=== PATIENT | male | born 1960 | race Two or more races ===

== ENCOUNTER 2017-06-01 15:43 | Inpatient (IN) | payer MEDICAID ==
[~2017-06-01] VITALS: Ht 198.1 cm; Wt 61.2 kg
[2017-06-01] MEDS ORDERED: Ziprasidone 20mg cap ORAL ONE (16:00)
[2017-06-01 16:04] VITALS: BP 118/75
[2017-06-01 16:36] LABS: MEAN CORPUSCULAR HEMOGLOBIN 22.9 PG (27.0-31.0); MEAN CORPUSCULAR VOLUME 76 FL (80-99); MEAN PLATELET VOLUME 6.9 FL (6.5-10.1); PLATELET COUNT 191 K/UL (150-450); RED BLOOD COUNT 4.56 M/UL (4.70-6.10); RED CELL DISTRIBUTION WIDTH 15.5 % (11.6-14.8); WHITE BLOOD COUNT 4.8 K/UL (4.8-10.8)
[2017-06-01 16:45] LABS: APPEARANCE,URINE CLEAR; KETONES,URINE NEGATIVE (NEGATIVE); LEUKOCYTE ESTERASE ,URINE NEGATIVE (NEGATIVE); NITRITE,URINE NEGATIVE (NEGATIVE); PH,URINE 5 (4.5-8.0); PROTEIN,URINE 1+ (NEGATIVE); UROBILINOGEN,URINE 1 MG/DL (0.0-1.0)
[2017-06-01 16:52] LABS: PROTHROMBIN TIME 10.4 SEC (9.30-11.50)
[2017-06-01 16:55] LABS: TROPONIN I < 0.30 ng/mL (<=0.30)
[2017-06-01 16:59] LABS: ALBUMIN/GLOBULIN RATIO 0.7 (1.0-2.7); CALCIUM 9.2 mg/dL (8.6-10.2); CREATININE 1.4 mg/dL (0.7-1.2); GLOMERULAR FILTRATION RATE 52.2 mL/min (>60); POTASSIUM 4.2 mEQ/L (3.4-4.9); TOTAL PROTEIN 8.2 g/dL (6.6-8.7)
[2017-06-01] MEDS ORDERED: [UNRECOGNIZED DRUG - OTHER] (17:08)
[2017-06-01 17:09] LABS: CKMB 10.6 ng/mL (< 6.7)
[2017-06-01 17:20] LABS: BACTERIA,URINE FEW /HPF; WBC,URINE 0-2 /HPF (0 - 0)
[2017-06-01 17:46] VITALS: BP 122/79
[2017-06-01 18:30] VITALS: BP 112/76
--- NOTE | 2017-06-01 18:41 | Emergency Room Report ---
History of Present Illness General Chief Complaint: Chest Pain Source: Patient Present Illness HPI Patient has history of schizophrenia. Patient states that he's compliant with medications. He develop acute onset of chest discomfort associated with hearing voices. He states that he has been hearing voices for one day. He has had chest discomfort with chest pain for a couple hours. He denies any fever nausea vomiting diarrhea chills. No other complaints are noted. Symptoms noted to be moderate. No other modifying factors. No other associated signs and symptoms. No other complaints were noted. Allergies: Coded Allergies: HALOPERIDOL (Verified Allergy, Unknown, 06/01/17) Patient History Past Medical History: asthma, psych hx Past Surgical History: none Pertinent Family History: none Social History: Denies: alcohol use, drug use, smoking Reviewed Nursing Documentation: PMH: Agreed, PSxH: Agreed Nursing Documentation-PMH Hx Asthma: Yes History Of Psychiatric Problem: Yes Review of Systems All Other Systems: negative except mentioned in HPI Physical Exam Vital Signs Date Time Temp Pulse Resp B/P Pulse Ox O2 Delivery O2 Flow Rate FiO2 06/01/17 15:43 98.8 101 17 114/72 100 Room Air Sp02 EP Interpretation: reviewed, normal General Appearance: normal inspection, well appearing, no apparent distress, alert Head: atraumatic Eyes: bilateral eye normal inspection ENT: normal ENT inspection, hearing grossly normal, normal voice Neck: normal inspection, full range of motion, supple, no bony tend Respiratory: normal inspection, lungs clear, normal breath sounds, no respiratory distress, no retraction, no wheezing Cardiovascular #1: regular rate, rhythm, no edema Gastrointestinal: normal inspection, normal bowel sounds, non tender, soft, no guarding, no hernia Genitourinary: no CVA tenderness Musculoskeletal: normal inspection, back normal, normal range of motion Neurologic: normal inspection, alert, responsive, speech normal Psychiatric: normal inspection, judgement/insight normal, anxious Skin: normal inspection, normal color, no rash Medical Decision Making Diagnostic Impression: Primary Impression: ACS (acute coronary syndrome) Additional Impression: Chest pain ER Course Patient presented to the emergency department today complaining of chest pain. Differential diagnoses include acute coronary syndrome, pulmonary embolism, pneumothorax, chest wall pain, pleurisy, pericarditis, acute anxiety reaction just to name a few. Given the severity of the patient's presentation I felt this is a highly complex patient. This patient required extensive workup. CBC , chemistry, EKG, chest x-ray, cardiac enzymes, liver profile were all obtained. 12-lead EKG performed for nontraumatic chest pain. PQRS documentation: EKG was performed. Please refer to below for interpretation. Patient had CBC and chemistry obtained. Both of which were normal. Patient's cardiac enzymes also normal. Patient had normal chest x-ray. Patient's EKG and rhythm strip are also normal. However given patient's risk factors I felt the patient require admission to the hospital. Case was discussed with Dr. Leo. Patient will be admitted to telemetry for further treatment. Labs Test 06/01/17 16:17 White Blood Count 4.8 K/UL (4.8-10.8) Red Blood Count 4.56 M/UL (4.70-6.10) Hemoglobin 10.4 G/DL (14.2-18.0) Hematocrit 34.8 % (42.0-52.0) Mean Corpuscular Volume 76 FL (80-99) Mean Corpuscular Hemoglobin 22.9 PG (27.0-31.0) Mean Corpuscular Hemoglobin Concent 30.0 G/DL (32.0-36.0) Red Cell Distribution Width 15.5 % (11.6-14.8) Platelet Count 191 K/UL (150-450) Mean Platelet Volume 6.9 FL (6.5-10.1) Neutrophils (%) (Auto) % (45.0-75.0) Lymphocytes (%) (Auto) % (20.0-45.0) Monocytes (%) (Auto) % (1.0-10.0) Eosinophils (%) (Auto) % (0.0-3.0) Basophils (%) (Auto) % (0.0-2.0) Prothrombin Time 10.4 SEC (9.30-11.50) Prothromb Time International Ratio 1.0 (0.9-1.1) Activated Partial Thromboplast Time 20 SEC (23-33) Urine Color Yellow Urine Appearance Clear Urine pH 5 (4.5-8.0) Urine Specific [place] 1.025 (1.005-1.035) Urine Protein 1+ (NEGATIVE) Urine Glucose (UA) Negative (NEGATIVE) Urine Ketones Negative (NEGATIVE) Urine Occult Blood 1+ (NEGATIVE) Urine Nitrite Negative (NEGATIVE) Urine Bilirubin Negative (NEGATIVE) Urine Urobilinogen 1 MG/DL (0.0-1.0) Urine Leukocyte Esterase Negative (NEGATIVE) Urine RBC 2-4 /HPF (0 - 0) Urine WBC 0-2 /HPF (0 - 0) Urine Squamous Epithelial Cells None /LPF (NONE/OCC) Urine Bacteria Few /HPF (NONE) Sodium Level 139 mEQ/L (135-145) Potassium Level 4.2 mEQ/L (3.4-4.9) Chloride Level 101 mEQ/L (98-107) Carbon Dioxide Level 27 mEQ/L (20-30) Anion Gap 11 (5-15) Blood Urea Nitrogen 12 mg/dL (7-23) Creatinine 1.4 mg/dL (0.7-1.2) Estimat Glomerular Filtration Rate 52.2 mL/min (>60) Glucose Level 109 mg/dL (74-106) Calcium Level 9.2 mg/dL (8.6-10.2) Total Bilirubin 0.6 mg/dL (0.0-1.2) Aspartate Amino Transf (AST/SGOT) 37 U/L (5-40) Alanine Aminotransferase (ALT/SGPT) 24 U/L (3-41) Alkaline Phosphatase 91 U/L (40-129) Total Creatine Kinase 621 U/L (38-174) Creatine Kinase MB 10.6 ng/mL (< 6.7) Creatine Kinase MB Relative Index 1.7 Troponin I < 0.30 ng/mL (<=0.30) Pro-B-Type Natriuretic Peptide 25 pg/mL (0-125) Total Protein 8.2 g/dL (6.6-8.7) Albumin 3.5 g/dL (3.5-5.2) Globulin 4.7 g/dL Albumin/Globulin Ratio 0.7 (1.0-2.7) Lipase 21 U/L (< 60) EKG Diagnostic Results Rate: normal Rhythm: NSR ST Segments: no acute changes Rhythm Strip Diag. Results EP Interpretation: yes Rate: 80s Rhythm: NSR, no PVC's, no ectopy Chest X-Ray Diagnostic Results Chest X-Ray Diagnostic Results : Chest X-Ray Ordered: Yes # of Views/Limited/Complete: 1 View Indication: Chest Pain EP Interpretation: Yes Interpretation: no consolidation, no effusion, no pneumothorax Impression: No acute disease Interpreting ER Provider: Electronically signed by Jessica Blanc MD Last Vital Signs Date Time Temp Pulse Resp B/P Pulse Ox O2 Delivery O2 Flow Rate FiO2 06/01/17 18:30 97.7 76 20 112/76 93 Room Air Status: improved Disposition: ADMITTED INPATIENT Condition: Serious Referrals: NOT CHOSEN AMA/,REFERRING (PCP) JESSICA BLANC M.D. Jun 01, 2017 18:41
[2017-06-01 19:55] LABS: ANISOCYTOSIS 1+; BAND NEUTROPHILS % (MANUAL) 0 % (0-8); BASOPHILS % (MANUAL) 1 % (0-2); EOSINOPHILS % (MANUAL) 2 % (0-3); HYPOCHROMASIA 1+; LYMPHOCYTES % (MANUAL) 55 % (20-45); NEUTROPHILS % (MANUAL) 36 % (45-75); PLATELET ESTIMATE ADEQUATE; PLATELET MORPHOLOGY NORMAL; TOTAL CELLS COUNTED 100
[2017-06-01] MEDS ORDERED: ZYPREXA15 MG ORAL (20:03)
[2017-06-01 20:17] VITALS: BP 112/80
[2017-06-02 00:19] VITALS: BP 110/59
[2017-06-02 03:59] VITALS: BP 122/60
[2017-06-02 08:29] VITALS: BP 124/74
[2017-06-02] MEDS: Norco 5mg/325mg tab ORAL PRN ×2 (08:31→18:38)
[2017-06-02] MEDS ORDERED: Aspirin Baby 81mg ORAL SCH (09:00)
--- NOTE | 2017-06-02 10:06 | Diagnostic Imaging Report ---
Indication: COUGH Technique: One view of the chest Comparison: none Findings: Lungs and pleural spaces are clear. Heart size is normal Impression: No acute process
[2017-06-02 10:30] LABS: TROPONIN I < 0.30 ng/mL (<=0.30)
[2017-06-02 11:36] VITALS: BP 96/65
[2017-06-02 15:56] VITALS: BP 113/85
--- NOTE | 2017-06-02 16:08 | Cardiology Report ---
APPROVED REPORT EKG Measurement Heart [id number] Normal sinus rhythm Biatrial enlargement Abnormal ECG
--- NOTE | 2017-06-02 16:15 | Consultation ---
DATE OF CONSULTATION: HISTORY OF PRESENT ILLNESS: This is a 56-year-old male with a history of schizophrenia and he is being admitted to the hospital due to chest pain as well as auditory hallucination. The patient has been hearing voices, the voices commanding him, various things. He is not endorsing any manic or depressive symptoms. At this time, he is anxious. No suicidal or homicidal ideation. PAST PSYCHIATRIC HISTORY: Diagnosed with schizophrenia and has had several psychiatric hospitalization. No suicide attempts in the past. PAST MEDICAL HISTORY: Significant for asthma. ALLERGIES: Include Haldol. SUBSTANCE ABUSE HISTORY: No history of illicit drug use or alcohol. MENTAL STATUS EXAMINATION: Alert and oriented times to person, place, and situation. Mood is anxious. Affect is constricted. Congruent mood. Thought process is concrete. Thought content, there is no suicidal or homicidal ideation. Positive for auditory hallucinations. Insight and judgment is fair. ASSESSMENT: Schizophrenia. PLAN: 1. The patient will continue the Zyprexa 15 mg at bedtime. 2. We will follow up the patient and readjust medications. Yris Chirinos M.D. DR: CYNDY JOB#: [id number] CC:
[2017-06-02] MEDS ORDERED: Sorbitol Solution UD 30ml ORAL ONE (18:30)
[2017-06-02 20:00] VITALS: BP 108/62
--- NOTE | 2017-06-02 20:45 | History and Physical Report ---
DATE OF ADMISSION: 06/01/2017 HISTORY OF PRESENT ILLNESS: The patient is here admitted for acute coronary syndrome. The patient also admitted for chest pain to rule out acute coronary syndrome. The patient denies nausea, vomiting, or diarrhea. He has very mild abdominal pain, which is mild. At best according to the patient, the patient is also a psychiatric patient. The patient has paranoid schizophrenia and hallucinating at times. The patient also currently states that he is hallucinating. Admits to schizophrenia with paranoia. Denies nausea. Denies rectal bleeding. Chest pain has been going on 2 days that radiates to the right arm instead of the left arm. The patient also is hearing voices and as mentioned has a mild abdominal pain x1 with no nausea, no constipation, no other associated symptoms. The patient has schizophrenia. Denies any constipation. Denies any GERD. PAST MEDICAL HISTORY: Paranoid schizophrenia. PAST SURGICAL HISTORY: None . MEDICATIONS: Zyprexa. ALLERGIES: Haldol SOCIAL HISTORY: The patient smokes. No history of drug abuse. No history of alcohol abuse. FAMILY HISTORY: Noncontributory. REVIEW OF SYSTEMS: HEENT: Denies headaches. Respiratory: Denies shortness of breath. Denies cough. Cardiovascular: Chest pain. No orthopnea. Gastrointestinal: Denies nausea, vomiting, or diarrhea. Does have mild abdominal pain for 1 day. He is in very mild distress. Denies constipation. Extremities: Denies pain in the lower extremities. Central Nervous System: Denies change in vision or speech pattern. PHYSICAL EXAMINATION: VITAL SIGNS: Temperature is 97.5 degrees, pulse is 85, and blood pressure 110/59. HEENT: PERRLA. NECK: Supple. No lymphadenopathy. CHEST: Clear to auscultation. GASTROINTESTINAL: Soft. Positive bowel sounds. No organomegaly. EXTREMITIES: No edema. Moves all 4 extremities. NEUROLOGIC: Sensation intact to light touch. Reflexes are equal on both sides. Oriented x2. LABORATORY AND DIAGNOSTIC DATA: WBC of 4.8, hemoglobin 10.4, and platelets 191,000. Sodium 139, potassium 4.2, BUN of 12, creatinine 1.4, and glucose of 109. LFTs are normal. Troponin is normal. No significant EKG changes. BNP is normal. ASSESSMENT: The patient has chest pain, rule out acute coronary syndrome. I have consulted Dr. Chirinos for the psychosis and paranoia, and Dr. Garcias for mild abdominal pain and Dr. Murray for the chest pain and Dr. Lou for azotemia. The patient has mild azotemia. Deniz Graves M.D. DR: Naye JOB#: [id number] CC:
--- NOTE | 2017-06-02 21:57 | General Progress Note ---
Assessment/Plan Assessment/Plan Assessment - Abdominal pain - microcytic anemia - atypical CP, negative Troponins Recommendations - clear liquid - check Fe - Check OB - EGD/Colon Wednesday, if OK from medical standpoint Subjective Allergies: Coded Allergies: HALOPERIDOL (Verified Allergy, Unknown, 06/01/17) Objective Last 24 Hour Vital Signs Date Time Temp Pulse Resp B/P Pulse Ox O2 Delivery O2 Flow Rate FiO2 06/02/17 20:00 98.6 91 20 108/62 96 Room Air 06/02/17 17:08 63 06/02/17 15:56 97.6 75 19 113/85 97 Room Air 06/02/17 11:36 97.8 74 18 96/65 98 Room Air 06/02/17 08:29 98.2 79 19 124/74 97 Room Air 06/02/17 08:00 79 06/02/17 04:00 84 06/02/17 03:59 98.6 82 20 122/60 97 Room Air 06/02/17 00:19 97.5 85 21 110/59 93 Room Air 06/02/17 00:00 81 Intake and Output 06/01/17 06/02/17 19:00 07:00 Intake Total 840 ml Output Total 600 ml Balance 240 ml Intake Oral 840 ml Output Urine Total 600 ml Laboratory Tests 06/02/17 10:05: Troponin I < 0.30 Height (Feet): 6 Height (Inches): 10.00 Weight (Pounds): 135 MARKIE NELSON Jun 02, 2017 21:57
[2017-06-03] VITALS: BP 96/55
--- NOTE | 2017-06-03 03:45 | Consultation ---
DATE OF CONSULTATION: 06/02/2017 GASTROLOGY CONSULTATION CONSULTING PHYSICIAN: Salma Garcias M.D. CHIEF COMPLAINT: I was asked to see this patient by Dr. Deniz Graves for evaluation of abdominal pain and anemia. HISTORY OF PRESENT ILLNESS: The patient is a 56-year-old male with a current finding of anemia. His was admitted with atypical CP but had negative cardiac enzymes. He has no exertional symptoms. He has not had an endoscopy or colonoscopy in the past 5 years. He has occasional mid epigastric pain. FAMILY HISTORY: Noncontributory. SOCIAL HISTORY: The patient does smoke, but does not use any drugs. He has had no history of alcohol use. REVIEW OF SYSTEMS: Otherwise negative. PHYSICAL EXAMINATION: GENERAL: This is a pleasant, calm, man, seen in his room. HEENT: Normocephalic and atraumatic. Sclerae anicteric. Oropharynx clear. NECK: Supple. CHEST: Clear to auscultation. CARDIOVASCULAR: Regular rhythm and rate. ABDOMEN: Soft. EXTREMITIES: No edema. LABORATORY DATA: Noted. Assessment: This patient presents with atypical chest pain, which does not appear to be cardiac in origin and in fact his troponins are negative. What is more concerning, however, in view of microcytic anemia, which category will be typically concerning for gastrointestinal malignancy or otherwise gastrointestinal significant blood loss. The indications, alternatives, and possible complications of endoscopy and colonoscopy were explained to the patient and all questions were answered. He appears to have a good understanding of the risks involved and wishes to proceed. RECOMMENDATIONS: 1. Begin gastrointestinal tract preparation. 2. Check iron panel. 3. Follow exam. 4. Endoscopy and colonoscopy, if okay from medical standpoint this Wednesday. Thank you for asking me to participate in the care of this patient. Salma Garcias M.D. DR: RODRÍGUEZ JOB#: [id number] CC: HENRYR
[2017-06-03 04:00] VITALS: BP 97/52
[2017-06-03 07:43] LABS: HEMOLYSIS 0; IRON 25 ug/dL (59-158); TOTAL IRON BINDING CAPACITY 318 ug/dL (250-400)
[2017-06-03 08:00] VITALS: BP 99/52
[2017-06-03] MEDS ORDERED: Nulytely 4L ORAL ONE ×2 (09:00→20:15)
[2017-06-03] MEDS: Norco 5mg/325mg tab ORAL PRN (10:22)
--- NOTE | 2017-06-03 11:31 | General Progress Note ---
Assessment/Plan Assessment/Plan Assessment - Abdominal pain - resolved - microcytic anemia with iron deficiency - atypical CP, negative Troponins Recommendations - Clears for now - await cardiac clearance - May need to postpone EGD/Colon to Mon, if inpatient, or return as outpt Subjective Allergies: Coded Allergies: HALOPERIDOL (Verified Allergy, Unknown, 06/01/17) Subjective patient feels OK no new complaints d/w medicine - needs cardiology clearance first d/w cardiology - will see pt later today d/w patient - advised may need to cancel EGD/Colon tomorrow pending cardiol clearance Advised pt would need to f/u with GI as outpatient to have procedure done Possibility of malignancy explained Objective Last 24 Hour Vital Signs Date Time Temp Pulse Resp B/P Pulse Ox O2 Delivery O2 Flow Rate FiO2 06/03/17 08:00 97.5 77 18 99/52 97 Room Air 06/03/17 04:00 98.6 81 18 97/52 94 Room Air 06/03/17 04:00 85 06/03/17 00:00 98.6 79 18 96/55 100 Room Air 06/03/17 00:00 87 06/02/17 20:00 98.6 91 20 108/62 96 Room Air 06/02/17 20:00 82 06/02/17 17:08 63 06/02/17 15:56 97.6 75 19 113/85 97 Room Air 06/02/17 11:36 97.8 74 18 96/65 98 Room Air Intake and Output 06/02/17 06/03/17 19:00 07:00 Intake Total 620 ml 320 ml Output Total 600 ml 1600 ml Balance 20 ml -1280 ml Intake Oral 620 ml 320 ml Output Urine Total 600 ml 1600 ml Laboratory Tests 06/03/17 04:50: Iron Level 25L, Total Iron Binding Capacity 318, Percent Iron Saturation 8L, Unsaturated Iron Binding 293, Ferritin 25 Height (Feet): 6 Height (Inches): 10.00 Weight (Pounds): 135 Objective WDWN NCAT RRR abd soft, NT no edema non focal MARKIE NELSON Jun 03, 2017 11:31
[2017-06-03 12:00] VITALS: BP 96/55
--- NOTE | 2017-06-03 14:15 | Consultation ---
Consult Note Consult Note Chief Complaint: Chest Pain Patient has history of schizophrenia. Patient states that he's compliant with medications. He develop acute onset of chest discomfort associated with hearing voices. He states that he has been hearing voices for one day. He has had chest discomfort with chest pain for a couple hours. He denies any fever nausea vomiting diarrhea chills. No other complaints are noted. Symptoms noted to be moderate. No other modifying factors. No other associated signs and symptoms. No other complaints were noted. Allergies: HALOPERIDOL (Verified Allergy, Unknown, 06/01/17) Past Medical History: asthma, psych hx Hx Asthma: Yes History Of Psychiatric Problem: Yes Assessment/Plan - Cr 1.4 ? CKD ? Dehydration and 1+ Proteinuria - Abdominal pain - resolved - microcytic anemia with iron deficiency - atypical CP, negative Troponins - Schizophrenia Low Iron Anemia h/o Asthma Plan: Hydrate FU renal parammeters one dose IV Iron per orders GIULIANA ALTMAN Jun 03, 2017 14:15
[2017-06-03] MEDS: Docusate 100mg cap ORAL SCH (15:10)
[2017-06-03 16:00] VITALS: BP 90/54
[2017-06-03] MEDS ORDERED: Iron Sucrose 200 MG in NS 110 ML IVPB ONE (16:00)
--- NOTE | 2017-06-03 20:00 | Consultation ---
DATE OF CONSULTATION: 06/03/2017 CARDIOLOGY CONSULTATION REFERRING PHYSICIAN: Deniz Graves M.D. REASON FOR CONSULTATION: Management of chest pain. HISTORY OF PRESENT ILLNESS: The patient is a very unfortunate, 56-year-old gentleman who presents to the hospital with complaints of chest pain. The patient states that the chest pain is stabbing in the midsternal, lasting about a few minutes. He also complains of dyspnea on exertion with 2 blocks of walking. He has underlying psychiatric disorder per record obtained from the emergency department. His risk factor for coronary artery disease includes age only. He admits to smoking half a pack of cigarettes per day as well as the active cocaine use. PAST MEDICAL HISTORY: Asthma. PSYCHIATRIC HISTORY: Polysubstance abuse. PAST SURGICAL HISTORY: None. FAMILY HISTORY: No premature coronary artery disease in first-degree relatives. SOCIAL HISTORY: Smokes half a pack of cigarettes per day. Uses cocaine, last use about 3 to 4 days ago. He denies any alcohol use. MEDICATIONS: Zyprexa 15 mg p.o. daily. REVIEW OF SYSTEMS: HEENT: Denies any headache, diplopia, or blurred vision. Constitutional: Denies any fever, chills, nausea, vomiting, or weight loss. Cardiovascular: Chest pain as mentioned above. Dyspnea on exertion with 2 blocks of walking. Denies any PND, orthopnea, leg swelling, palpitations, or syncope. Pulmonary: Denies any cough, hemoptysis, or wheezing. Gastrointestinal: Denies any nausea, vomiting, diarrhea, constipation, abdominal pain, hematochezia, or melanotic stool. Genitourinary: Denies any hematuria, dysuria, or incontinence. Neurologic: Denies any motor dysfunction, sensory deficit, or altered speech. Psychiatric: Admits to hearing voices. PHYSICAL EXAMINATION: VITAL SIGNS: Blood pressure at time of arrival to the hospital was 114/72, pulse of 101, respirations 17, and temperature 98.8 degrees Fahrenheit. GENERAL: The patient is a very unfortunate, 56-year-old, gentleman, in no apparent respiratory distress, alert and oriented x4. HEENT: Atraumatic and normocephalic. Anicteric. Pupils are equal, round, and reactive to light and accommodation. Extraocular muscles are intact. NECK: JVP is less than 5 cm. No carotid bruits. Carotid upstrokes 2+ bilaterally. CARDIOVASCULAR: Normal S1, S2. Regular rate and rhythm. No murmurs, gallops, or rubs. PMI is at 4th intercostal space in the midclavicular line. LUNGS: Clear to auscultation bilaterally. ABDOMEN: Soft, nontender, and nondistended. No hepatosplenomegaly. Positive bowel sounds. EXTREMITIES: No evidence of edema, clubbing, or cyanosis. LABORATORY AND DIAGNOSTIC DATA: Sodium is 139, potassium is 4.2, chloride 101, bicarbonate 27, BUN of 12, creatinine 1.4, glucose is 109, and calcium is 9.2. Troponin-I x2 negative. ProBNP is 25. WBC 4.8, hemoglobin 10.4, hematocrit 34.8, and platelet count is 191,000. INR is 1.0. Chest x-ray shows no acute cardiopulmonary disease. A 12-lead electrocardiogram shows sinus rhythm at a rate of 84 with normal axis with left atrial enlargement. ASSESSMENT/PLAN: The patient is a very unfortunate, 56-year-old gentleman who is seen in cardiology consultation at request of Dr. Graves. 1. Noncardiac chest pain. Chest pain is stabbing in nature. There is no associated ST and T-wave abnormalities. History is not convincing for ischemic heart disease. Risk factors for coronary artery disease including only age. I would like to obtain urine drug test. In the meantime, I will obtain a lipid panel for CAD risk stratification. The patient may not be a candidate for aspirin in view of anemia and microcytosis. 2. The patient is cleared for endoscopic procedure planned by Dr. Garcias. The risk of coronary artery disease is estimated to be less than 1%. I would like to thank, Dr. Graves, for allowing me to participate in the care of this patient. Joel Murray M.D. DR: DEVIKA JOB#: [id number] CC:
[2017-06-03 20:23] VITALS: BP 111/69
--- NOTE | 2017-06-03 21:03 | General Progress Note ---
Assessment/Plan Problem List: (1) ACS (acute coronary syndrome) ICD Codes: I24.9 - Acute ischemic heart disease, unspecified SNOMED: 662562317 (2) Chest pain ICD Codes: R07.9 - Chest pain, unspecified SNOMED: [id number] Status: progressing Assessment/Plan no cp cardiac w/u per cardiology afebrile dc planning in am Subjective ROS Limited/Unobtainable: Yes Constitutional: Reports: no symptoms Allergies: Coded Allergies: HALOPERIDOL (Verified Allergy, Unknown, 06/01/17) Objective Last 24 Hour Vital Signs Date Time Temp Pulse Resp B/P Pulse Ox O2 Delivery O2 Flow Rate FiO2 06/03/17 20:23 97.3 86 20 111/69 98 06/03/17 16:00 92 06/03/17 16:00 98.1 76 18 90/54 99 Room Air 06/03/17 12:00 74 06/03/17 12:00 97.8 78 18 96/55 Room Air 06/03/17 08:00 97.5 77 18 99/52 97 Room Air 06/03/17 08:00 75 06/03/17 04:00 98.6 81 18 97/52 94 Room Air 06/03/17 04:00 85 06/03/17 00:00 98.6 79 18 96/55 100 Room Air 06/03/17 00:00 87 Intake and Output 06/02/17 06/03/17 19:00 07:00 Intake Total 620 ml 320 ml Output Total 600 ml 1600 ml Balance 20 ml -1280 ml Intake Oral 620 ml 320 ml Output Urine Total 600 ml 1600 ml Laboratory Tests 06/03/17 04:50: Iron Level 25L, Total Iron Binding Capacity 318, Percent Iron Saturation 8L, Unsaturated Iron Binding 293, Ferritin 25 Height (Feet): 6 Height (Inches): 10.00 Weight (Pounds): 135 Neck: supple Cardiovascular: normal rate Respiratory/Chest: lungs clear Deniz Graves MD Jun 03, 2017 21:03
[2017-06-04 00:12] VITALS: BP 103/65
--- NOTE | 2017-06-04 01:15 | Progress Note ---
DATE: 06/03/2017 SUBJECTIVE: The patient covered his head with a blanket and complained of being hungry. He was awaiting EEG. The patient does not have any complaint. He is not endorsing any depressive or anxiety symptoms, however, he is anxious. MENTAL STATUS EXAMINATION: The patient is oriented times to person, place, and situation. Mood is anxious. Affect is constricted. Congruent mood. Thought process is concrete. Thought content, no suicidal, and homicidal ideation. ASSESSMENT: Anxiety disorder and depression. PLAN: 1. The patient will be continued on current medication. 2. Provided the patient with supportive therapy and reality orientation. Yris Chirinos M.D. DR: Carrington JOB#: [id number] CC:
[2017-06-04 03:57] VITALS: BP 93/58
--- NOTE | 2017-06-04 06:00 | Consultation ---
DATE OF CONSULTATION: 06/03/2017 NOTE: POOR AUDIO QUALITY HEMATOLOGY/ONCOLOGY CONSULTATION CONSULTING PHYSICIAN: Brian Moe M.D. REQUESTING PHYSICIAN: Deniz Graves M.D. REASON FOR CONSULTATION: Evaluation of anemia. IDENTIFICATION DATA: Dear Dr. Deniz Graves, The patient is an unfortunate but pleasant 56-year-old male with a past medical history significant for history of asthma, hypertension with findings of anemia, admitted for atypical chest pain, negative cardiac troponins. He has had no exertional symptoms. He had most recent endoscopy and colonoscopy 5 years ago. He admits to mid epigastric pain, noted to be anemic. Hematology service was consulted. PAST MEDICAL HISTORY: Asthma . PAST SURGICAL HISTORY: . MEDICATIONS: Zyprexa SOCIAL HISTORY: No alcohol, tobacco, or illicit drug use . FAMILY HISTORY: Noncontributory. PSYCHIATRIC HISTORY: Polysubstance abuse. PHYSICAL EXAMINATION: VITAL SIGNS: Temperature 98 degrees Fahrenheit, pulse of 83, respiratory rate 12, and blood pressure 113/72. GENERAL: No acute distress. PULMONARY: Decreased breath sounds. CARDIOVASCULAR: Regular rate. No S3 or S4. ABDOMEN: Hepatosplenomegaly . EXTREMITIES: No cyanosis, clubbing, or edema. LABORATORY DATA: Creatinine 4.2, BUN of 12. WBC 4.8, hemoglobin , and platelet count 191,000. ASSESSMENT AND PLAN: 1. Anemia secondary to iron deficiency. Anemia workup has been ordered concerning for GI bleed. 2. Microcytosis , rule out gastrointestinal bleed. 3. Atypical chest pain. 4. History of asthma. 5. Acute coronary syndrome . 6. Thank you for consultation. Brian Moe M.D. DR: ADRIANNA JOB#: [id number] CC:
[2017-06-04 06:45] LABS: MEAN CORPUSCULAR HEMOGLOBIN 23.4 PG (27.0-31.0); MEAN CORPUSCULAR HGB CONC 30.5 G/DL (32.0-36.0); MEAN CORPUSCULAR VOLUME 77 FL (80-99); MEAN PLATELET VOLUME 6.4 FL (6.5-10.1); PLATELET COUNT 159 K/UL (150-450); RED BLOOD COUNT 4.69 M/UL (4.70-6.10); RED CELL DISTRIBUTION WIDTH 15.3 % (11.6-14.8)
[2017-06-04 06:56] LABS: HEMOGLOBIN A1C 5.6 % (< 6.0)
[2017-06-04 07:03] LABS: THYROID STIMULATING HORMONE 0.668 uIU/mL (0.300-4.500)
[2017-06-04 07:11] LABS: ALANINE AMINOTRANSFERASE 17 U/L (3-41); ALBUMIN/GLOBULIN RATIO 0.7 (1.0-2.7); ANION GAP 6 (5-15); ASPARTATE AMINO TRANSFERASE 26 U/L (5-40); CALCIUM 8.8 mg/dL (8.6-10.2); CARBON DIOXIDE 31 mEQ/L (20-30); CHLORIDE 103 mEQ/L (98-107); CHOLESTEROL 122 mg/dL (< 200); CHOLESTEROL/HDL RATIO 3.9 (3.3-4.4); CREATININE 1.1 mg/dL (0.7-1.2); CRP QUANT 1.4 mg/dL (< 0.5); GLOMERULAR FILTRATION RATE > 60 mL/min (>60); HEMOLYSIS 5; LDL CHOLESTEROL (CALC.) 73 mg/dL (60-99); PHOSPHORUS 3.6 mg/dL (2.5-4.8); SODIUM 140 mEQ/L (135-145); TOTAL PROTEIN 8.2 g/dL (6.6-8.7)
[2017-06-04 07:43] LABS: BAND NEUTROPHILS % (MANUAL) 0 % (0-8); BASOPHILS % (MANUAL) 0 % (0-2); EOSINOPHILS % (MANUAL) 4 % (0-3); HYPOCHROMASIA 1+; LYMPHOCYTES % (MANUAL) 76 % (20-45); NEUTROPHILS % (MANUAL) 12 % (45-75); PLATELET ESTIMATE ADEQUATE; TOTAL CELLS COUNTED 100
[2017-06-04 07:44] LABS: ANISOCYTOSIS 1+; MICROCYTES 1+; PLATELET MORPHOLOGY NORMAL
[2017-06-04 08:00] VITALS: BP 107/62
[2017-06-04] MEDS: Docusate 100mg cap ORAL SCH ×2 (09:53→18:39)
--- NOTE | 2017-06-04 11:58 | General Progress Note ---
Assessment/Plan Status: stable Assessment/Plan - Cr 1.4 ? CKD ? Dehydration and 1+ Proteinuria now WNL - Abdominal pain - resolved - microcytic anemia with iron deficiency - atypical CP, negative Troponins - Schizophrenia Low Iron Anemia h/o Asthma Plan: Hydrate, bollous- BP low, check cortisol level FU renal parammeters one dose IV Iron per orders Subjective ROS Limited/Unobtainable: No Constitutional: Reports: malaise Allergies: Coded Allergies: HALOPERIDOL (Verified Allergy, Unknown, 06/01/17) Objective Last 24 Hour Vital Signs Date Time Temp Pulse Resp B/P Pulse Ox O2 Delivery O2 Flow Rate FiO2 06/04/17 08:00 97.4 72 20 107/62 98 Room Air 06/04/17 04:00 76 06/04/17 03:57 96.8 70 20 93/58 99 Room Air 70 06/04/17 00:12 96.0 74 18 103/65 98 Room Air 06/04/17 00:00 74 06/03/17 20:23 97.3 86 20 111/69 98 06/03/17 20:00 95 06/03/17 16:00 92 06/03/17 16:00 98.1 76 18 90/54 99 Room Air 06/03/17 12:00 74 06/03/17 12:00 97.8 78 18 96/55 Room Air Intake and Output 06/03/17 06/04/17 19:00 07:00 Intake Total 2520 ml 100 ml Balance 2520 ml 100 ml Intake Oral 2220 ml IV Total 300 ml 100 ml # Voids 2 5 # Bowel Movements 2 Laboratory Tests 06/04/17 01:30: Urine Opiates Screen Negative, Urine Barbiturates Screen Negative, Phencyclidine (PCP) Screen Negative, Urine Amphetamines Screen Negative, Urine Benzodiazepines Screen Negative, Urine Cocaine Screen PositiveH, Urine Marijuana (THC) Screen Negative 06/04/17 05:20: White Blood Count 4.0L, Red Blood Count 4.69L, Hemoglobin 11.0L, Hematocrit 35.9L, Mean Corpuscular Volume 77L, Mean Corpuscular Hemoglobin 23.4L, Mean Corpuscular Hemoglobin Concent 30.5L, Red Cell Distribution Width 15.3H, Platelet Count 159, Mean Platelet Volume 6.4L, Neutrophils (%) (Auto) , Lymphocytes (%) (Auto) , Monocytes (%) (Auto) , Eosinophils (%) (Auto) , Basophils (%) (Auto) , Differential Total Cells Counted 100, Neutrophils % ( Manual) 12L, Lymphocytes % (Manual) 76H, Monocytes % (Manual) 8, Eosinophils % ( Manual) 4H, Basophils % (Manual) 0, Band Neutrophils 0, Platelet Estimate Adequate, Platelet Morphology Normal, Hypochromasia 1+, Anisocytosis 1+, Microcytosis 1+, Sodium Level 140, Potassium Level 4.0, Chloride Level 103, Carbon Dioxide Level 31H, Anion Gap 6, Blood Urea Nitrogen 9, Creatinine 1.1, Estimat Glomerular Filtration Rate > 60, Glucose Level 80, Hemoglobin A1c 5.6, Calcium Level 8.8, Phosphorus Level 3.6, Magnesium Level 2.0, Total Bilirubin 0.7, Aspartate Amino Transf (AST/SGOT) 26, Alanine Aminotransferase (ALT/SGPT) 17, Alkaline Phosphatase 82, C-Reactive Protein, Quantitative 1.4H, Pro-B-Type Natriuretic Peptide 7, Total Protein 8.2, Albumin 3.5, Globulin 4.7, Albumin/ Globulin Ratio 0.7L, Triglycerides Level 89, Cholesterol Level 122, LDL Cholesterol 73, HDL Cholesterol 31, Cholesterol/HDL Ratio 3.9, Vitamin B12 Level 516, Folate [Pending], Thyroid Stimulating Hormone (TSH) 0.668 Height (Feet): 6 Height (Inches): 6.00 Weight (Pounds): 135 General Appearance: no apparent distress Cardiovascular: normal rate Respiratory/Chest: lungs clear Abdomen: soft GIULIANA ALTMAN Jun 04, 2017 11:58
--- NOTE | 2017-06-04 15:35 | General Progress Note ---
Assessment/Plan Assessment/Plan ASSESSMENT AND PLAN: 1. Anemia secondary to iron deficiency. Anemia workup has been ordered --> anemia panel reviewed, low iron anemia 2. Microcytosis rule out gastrointestinal bleed. --> egd was scheduled per Dr. Garcias, but patient refused npo order, procedure cancelled 3. Atypical chest pain. 4. History of asthma. 5. Acute coronary syndrome Subjective Constitutional: Reports: no symptoms HEENT: Reports: no symptoms Cardiovascular: Reports: no symptoms Respiratory: Reports: no symptoms Gastrointestinal/Abdominal: Reports: no symptoms Genitourinary: Reports: no symptoms Neurologic/Psychiatric: Reports: no symptoms Endocrine: Reports: no symptoms Hematologic/Lymphatic: Reports: anemia Allergies: Coded Allergies: HALOPERIDOL (Verified Allergy, Unknown, 06/01/17) Subjective refusing npo for egd Objective Last 24 Hour Vital Signs Date Time Temp Pulse Resp B/P Pulse Ox O2 Delivery O2 Flow Rate FiO2 06/04/17 08:00 97.4 72 20 107/62 98 Room Air 06/04/17 04:00 76 06/04/17 03:57 96.8 70 20 93/58 99 Room Air 70 06/04/17 00:12 96.0 74 18 103/65 98 Room Air 06/04/17 00:00 74 06/03/17 20:23 97.3 86 20 111/69 98 06/03/17 20:00 95 06/03/17 16:00 92 06/03/17 16:00 98.1 76 18 90/54 99 Room Air Intake and Output 06/03/17 06/04/17 19:00 07:00 Intake Total 2520 ml 100 ml Balance 2520 ml 100 ml Intake Oral 2220 ml IV Total 300 ml 100 ml # Voids 2 5 # Bowel Movements 2 Laboratory Tests 06/04/17 01:30: Urine Opiates Screen Negative, Urine Barbiturates Screen Negative, Phencyclidine (PCP) Screen Negative, Urine Amphetamines Screen Negative, Urine Benzodiazepines Screen Negative, Urine Cocaine Screen PositiveH, Urine Marijuana (THC) Screen Negative 06/04/17 05:20: White Blood Count 4.0L, Red Blood Count 4.69L, Hemoglobin 11.0L, Hematocrit 35.9L, Mean Corpuscular Volume 77L, Mean Corpuscular Hemoglobin 23.4L, Mean Corpuscular Hemoglobin Concent 30.5L, Red Cell Distribution Width 15.3H, Platelet Count 159, Mean Platelet Volume 6.4L, Neutrophils (%) (Auto) , Lymphocytes (%) (Auto) , Monocytes (%) (Auto) , Eosinophils (%) (Auto) , Basophils (%) (Auto) , Differential Total Cells Counted 100, Neutrophils % ( Manual) 12L, Lymphocytes % (Manual) 76H, Monocytes % (Manual) 8, Eosinophils % ( Manual) 4H, Basophils % (Manual) 0, Band Neutrophils 0, Platelet Estimate Adequate, Platelet Morphology Normal, Hypochromasia 1+, Anisocytosis 1+, Microcytosis 1+, Sodium Level 140, Potassium Level 4.0, Chloride Level 103, Carbon Dioxide Level 31H, Anion Gap 6, Blood Urea Nitrogen 9, Creatinine 1.1, Estimat Glomerular Filtration Rate > 60, Glucose Level 80, Hemoglobin A1c 5.6, Calcium Level 8.8, Phosphorus Level 3.6, Magnesium Level 2.0, Total Bilirubin 0.7, Aspartate Amino Transf (AST/SGOT) 26, Alanine Aminotransferase (ALT/SGPT) 17, Alkaline Phosphatase 82, C-Reactive Protein, Quantitative 1.4H, Pro-B-Type Natriuretic Peptide 7, Total Protein 8.2, Albumin 3.5, Globulin 4.7, Albumin/ Globulin Ratio 0.7L, Triglycerides Level 89, Cholesterol Level 122, LDL Cholesterol 73, HDL Cholesterol 31, Cholesterol/HDL Ratio 3.9, Vitamin B12 Level 516, Folate [Pending], Thyroid Stimulating Hormone (TSH) 0.668, Cortisol AM Sample 11.1 Height (Feet): 6 Height (Inches): 6.00 Weight (Pounds): 135 General Appearance: no apparent distress EENT: TMs normal Neck: normal alignment Cardiovascular: regular rhythm Respiratory/Chest: normal breath sounds Abdomen: non tender Extremities: non-tender Edema: no edema noted Pedal (L), no edema noted Pedal (R) Neurologic: oriented x 3 Skin: warm/dry Brian Moe Jun 04, 2017 15:35
--- NOTE | 2017-06-04 18:31 | General Progress Note ---
Assessment/Plan Assessment/Plan Assessment - Abdominal pain - resolved - microcytic anemia with iron deficiency - atypical CP, negative Troponins Recommendations - Cancel EGD/Colon per pt request - d/c plannig - outpt GI eval - pt to arrange Subjective Allergies: Coded Allergies: HALOPERIDOL (Verified Allergy, Unknown, 06/01/17) Subjective patient declined EGD/Colon understands risk of CA advised to see PMD as outpt to re arrange Objective Last 24 Hour Vital Signs Date Time Temp Pulse Resp B/P Pulse Ox O2 Delivery O2 Flow Rate FiO2 06/04/17 08:00 97.4 72 20 107/62 98 Room Air 06/04/17 04:00 76 06/04/17 03:57 96.8 70 20 93/58 99 Room Air 70 06/04/17 00:12 96.0 74 18 103/65 98 Room Air 06/04/17 00:00 74 06/03/17 20:23 97.3 86 20 111/69 98 06/03/17 20:00 95 Intake and Output 06/03/17 06/04/17 19:00 07:00 Intake Total 2520 ml 100 ml Balance 2520 ml 100 ml Intake Oral 2220 ml IV Total 300 ml 100 ml # Voids 2 5 # Bowel Movements 2 Laboratory Tests 06/04/17 01:30: Urine Opiates Screen Negative, Urine Barbiturates Screen Negative, Phencyclidine (PCP) Screen Negative, Urine Amphetamines Screen Negative, Urine Benzodiazepines Screen Negative, Urine Cocaine Screen PositiveH, Urine Marijuana (THC) Screen Negative 06/04/17 05:20: White Blood Count 4.0L, Red Blood Count 4.69L, Hemoglobin 11.0L, Hematocrit 35.9L, Mean Corpuscular Volume 77L, Mean Corpuscular Hemoglobin 23.4L, Mean Corpuscular Hemoglobin Concent 30.5L, Red Cell Distribution Width 15.3H, Platelet Count 159, Mean Platelet Volume 6.4L, Neutrophils (%) (Auto) , Lymphocytes (%) (Auto) , Monocytes (%) (Auto) , Eosinophils (%) (Auto) , Basophils (%) (Auto) , Differential Total Cells Counted 100, Neutrophils % ( Manual) 12L, Lymphocytes % (Manual) 76H, Monocytes % (Manual) 8, Eosinophils % ( Manual) 4H, Basophils % (Manual) 0, Band Neutrophils 0, Platelet Estimate Adequate, Platelet Morphology Normal, Hypochromasia 1+, Anisocytosis 1+, Microcytosis 1+, Sodium Level 140, Potassium Level 4.0, Chloride Level 103, Carbon Dioxide Level 31H, Anion Gap 6, Blood Urea Nitrogen 9, Creatinine 1.1, Estimat Glomerular Filtration Rate > 60, Glucose Level 80, Hemoglobin A1c 5.6, Calcium Level 8.8, Phosphorus Level 3.6, Magnesium Level 2.0, Total Bilirubin 0.7, Aspartate Amino Transf (AST/SGOT) 26, Alanine Aminotransferase (ALT/SGPT) 17, Alkaline Phosphatase 82, C-Reactive Protein, Quantitative 1.4H, Pro-B-Type Natriuretic Peptide 7, Total Protein 8.2, Albumin 3.5, Globulin 4.7, Albumin/ Globulin Ratio 0.7L, Triglycerides Level 89, Cholesterol Level 122, LDL Cholesterol 73, HDL Cholesterol 31, Cholesterol/HDL Ratio 3.9, Vitamin B12 Level 516, Folate [Pending], Thyroid Stimulating Hormone (TSH) 0.668, Cortisol AM Sample 11.1 Height (Feet): 6 Height (Inches): 6.00 Weight (Pounds): 135 Objective WDWN NCAT RRR abd soft, NT no edema non focal MARKIE NELSON Jun 04, 2017 18:31
[2017-06-04 20:00] VITALS: BP 101/52
[2017-06-04] MEDS: Iron Sucrose 100 MG in NS 55 ML IVPB SCH (21:24)
--- NOTE | 2017-06-04 21:45 | Progress Note ---
SUBJECTIVE: The patient was not in good mood, complaining of weakness and decreased appetite. The patient is having poor insight and judgment into his mental condition. He stated that he does not know what date is MENTAL STATUS EXAMINATION: Alert and oriented to time, place, and person. His mood is dysphoric and depressed. Affect is constricted. Congruent with mood. Thought process is concrete. Thought content, no suicidal, homicidal ideation. ASSESSMENT: 1. . 2. Depression. 3. Cognitive impairment. PLAN: 1. The patient will be continued on current medication. 2. Provide the patient with supportive therapy and reality orientation. Yris Chirinos M.D. DR: Kamini JOB#: [id number] CC:
--- NOTE | 2017-06-04 21:59 | Cardiology Progress Note ---
Assessment/Plan Assessment/Plan 1. Noncardiac chest pain, presence of cocaine in the urine verified, continue the current management. 2. Hypotension, endoscopy scheduled however the patient refused. 3. Anemia of blood loss. 4. Hx of asthma. Subjective Subjective Hypotension was reported by the nurse. IV bolus given The patient has refused endoscopy. SR at 75. Objective Last 24 Hour Vital Signs Date Time Temp Pulse Resp B/P Pulse Ox O2 Delivery O2 Flow Rate FiO2 06/04/17 20:00 97.4 73 20 101/52 98 Room Air 06/04/17 16:00 74 06/04/17 12:00 72 06/04/17 08:00 97.4 72 20 107/62 98 Room Air 06/04/17 08:00 90 06/04/17 04:00 76 06/04/17 03:57 96.8 70 20 93/58 99 Room Air 70 06/04/17 00:12 96.0 74 18 103/65 98 Room Air 06/04/17 00:00 74 Intake and Output 06/03/17 06/04/17 19:00 07:00 Intake Total 2520 ml 100 ml Balance 2520 ml 100 ml Intake Oral 2220 ml IV Total 300 ml 100 ml # Voids 2 5 # Bowel Movements 2 Laboratory Tests Test 06/04/17 01:30 06/04/17 05:20 Urine Opiates Screen Negative (NEGATIVE) Urine Barbiturates Screen Negative (NEGATIVE) Phencyclidine (PCP) Screen Negative (NEGATIVE) Urine Amphetamines Screen Negative (NEGATIVE) Urine Benzodiazepines Screen Negative (NEGATIVE) Urine Cocaine Screen Positive (NEGATIVE) H Urine Marijuana (THC) Screen Negative (NEGATIVE) White Blood Count 4.0 K/UL (4.8-10.8) L Red Blood Count 4.69 M/UL (4.70-6.10) L Hemoglobin 11.0 G/DL (14.2-18.0) L Hematocrit 35.9 % (42.0-52.0) L Mean Corpuscular Volume 77 FL (80-99) L Mean Corpuscular Hemoglobin 23.4 PG (27.0-31.0) L Mean Corpuscular Hemoglobin Concent 30.5 G/DL (32.0-36.0) L Red Cell Distribution Width 15.3 % (11.6-14.8) H Platelet Count 159 K/UL (150-450) Mean Platelet Volume 6.4 FL (6.5-10.1) L Neutrophils (%) (Auto) % (45.0-75.0) Lymphocytes (%) (Auto) % (20.0-45.0) Monocytes (%) (Auto) % (1.0-10.0) Eosinophils (%) (Auto) % (0.0-3.0) Basophils (%) (Auto) % (0.0-2.0) Differential Total Cells Counted 100 Neutrophils % (Manual) 12 % (45-75) L Lymphocytes % (Manual) 76 % (20-45) H Monocytes % (Manual) 8 % (1-10) Eosinophils % (Manual) 4 % (0-3) H Basophils % (Manual) 0 % (0-2) Band Neutrophils 0 % (0-8) Platelet Estimate Adequate Platelet Morphology Normal Hypochromasia 1+ Anisocytosis 1+ Microcytosis 1+ Sodium Level 140 mEQ/L (135-145) Potassium Level 4.0 mEQ/L (3.4-4.9) Chloride Level 103 mEQ/L (98-107) Carbon Dioxide Level 31 mEQ/L (20-30) H Anion Gap 6 (5-15) Blood Urea Nitrogen 9 mg/dL (7-23) Creatinine 1.1 mg/dL (0.7-1.2) Estimat Glomerular Filtration Rate > 60 mL/min (>60) Glucose Level 80 mg/dL (74-106) Hemoglobin A1c 5.6 % (< 6.0) Calcium Level 8.8 mg/dL (8.6-10.2) Phosphorus Level 3.6 mg/dL (2.5-4.8) Magnesium Level 2.0 mg/dL (1.7-2.5) Total Bilirubin 0.7 mg/dL (0.0-1.2) Aspartate Amino Transf (AST/SGOT) 26 U/L (5-40) Alanine Aminotransferase (ALT/SGPT) 17 U/L (3-41) Alkaline Phosphatase 82 U/L (40-129) C-Reactive Protein, Quantitative 1.4 mg/dL (< 0.5) H Pro-B-Type Natriuretic Peptide 7 pg/mL (0-125) Total Protein 8.2 g/dL (6.6-8.7) Albumin 3.5 g/dL (3.5-5.2) Globulin 4.7 g/dL Albumin/Globulin Ratio 0.7 (1.0-2.7) L Triglycerides Level 89 mg/dL (< 150) Cholesterol Level 122 mg/dL (< 200) LDL Cholesterol 73 mg/dL (60-99) HDL Cholesterol 31 mg/dL (> 60) Cholesterol/HDL Ratio 3.9 (3.3-4.4) Vitamin B12 Level 516 pg/mL (211-946) Folate Pending Thyroid Stimulating Hormone (TSH) 0.668 uIU/mL (0.300-4.500) Cortisol AM Sample 11.1 ug/dL (6.0-20.0) Objective HEENT: Atraumatic and normocephalic. Anicteric. Pupils are equal, round, and reactive to light and accommodation. Extraocular muscles are intact. NECK: JVP is less than 5 cm. No carotid bruits. Carotid upstrokes 2+ bilaterally. CARDIOVASCULAR: Normal S1, S2. Regular rate and rhythm. No murmurs, gallops, or rubs. PMI is at 4th intercostal space in the midclavicular line. LUNGS: Clear to auscultation bilaterally. ABDOMEN: Soft, nontender, and nondistended. No hepatosplenomegaly. Positive bowel sounds. EXTREMITIES: No evidence of edema, clubbing, or cyanosis. DAISY HNANA Jun 04, 2017 21:59
[2017-06-05 00:01] VITALS: BP 109/58
[2017-06-05 04:00] VITALS: BP 105/58
[2017-06-05 08:06] VITALS: BP 113/65
[2017-06-05] MEDS: Docusate 100mg cap ORAL SCH ×2 (09:12→18:04)
--- NOTE | 2017-06-05 11:28 | General Progress Note ---
Assessment/Plan Status: stable Status Narrative BP stable now Assessment/Plan - Cr 1.4 ? CKD ? Dehydration and 1+ Proteinuria now WNL - Abdominal pain - resolved - microcytic anemia with iron deficiency - atypical CP, negative Troponins - Schizophrenia Low Iron Anemia h/o Asthma Plan: Hydrate, bollous- BP low, check cortisol level FU renal parammeters one dose IV Iron per orders Subjective ROS Limited/Unobtainable: No Allergies: Coded Allergies: HALOPERIDOL (Verified Allergy, Unknown, 06/01/17) Objective Last 24 Hour Vital Signs Date Time Temp Pulse Resp B/P Pulse Ox O2 Delivery O2 Flow Rate FiO2 06/05/17 08:06 97.5 73 18 113/65 100 Room Air 06/05/17 08:00 74 06/05/17 04:00 97.2 90 20 105/58 97 Room Air 06/05/17 04:00 72 06/05/17 00:01 97.2 92 20 109/58 97 Room Air 06/05/17 00:00 94 06/04/17 20:00 97.4 73 20 101/52 98 Room Air 06/04/17 16:00 74 06/04/17 12:00 72 Intake and Output 06/04/17 06/05/17 19:00 07:00 Intake Total 1000 ml 540 ml Output Total 600 ml Balance 400 ml 540 ml Intake Oral 500 ml 480 ml IV Total 500 ml 60 ml Output Urine Total 600 ml # Voids 4 Height (Feet): 6 Height (Inches): 6.00 Weight (Pounds): 135 General Appearance: no apparent distress Objective no change in PE GIULIANA ALTMAN Jun 05, 2017 11:28
[2017-06-05 12:01] VITALS: BP 114/67
--- NOTE | 2017-06-05 15:00 | Infectious Diseases Prog Note ---
Assessment/Plan Problems: (1) Acute bronchitis Assessment & Plan: will start levaquin for 5 days (2) Chest pain Assessment & Plan: monitor, trop , cardiology is following (3) ACS (acute coronary syndrome) Assessment & Plan: continue cardiac meds, and tele monitor, cardiology is following Subjective Allergies: Coded Allergies: HALOPERIDOL (Verified Allergy, Unknown, 06/01/17) Objective Vital Signs Last 24 Hour Vital Signs Date Time Temp Pulse Resp B/P Pulse Ox O2 Delivery O2 Flow Rate FiO2 06/05/17 12:01 96.6 70 18 114/67 100 Room Air 06/05/17 12:00 96 06/05/17 08:06 97.5 73 18 113/65 100 Room Air 06/05/17 08:00 74 06/05/17 04:00 97.2 90 20 105/58 97 Room Air 06/05/17 04:00 72 06/05/17 00:01 97.2 92 20 109/58 97 Room Air 06/05/17 00:00 94 06/04/17 20:00 97.4 73 20 101/52 98 Room Air 06/04/17 16:00 74 Height (Feet): 6 Height (Inches): 6.00 Weight (Pounds): 135 Current Medications Medications (Trade) Dose Ordered Sig/Jayy Route PRN Reason Start Time Stop Time Status Last Admin Dose Admin Acetaminophen (Tylenol) 650 mg Q4H PRN ORAL Mild Pain/Temp > 100.5 06/01/17 20:15 07/01/17 20:14 06/02/17 03:28 Acetaminophen/ Hydrocodone Bitart ([place] 5/325) 1 tab Q4H PRN ORAL Moderate Pain (Pain Scale 4-6) 06/02/17 06:45 06/09/17 06:44 06/03/17 10:22 Al Hydroxide/Mg Hydroxide (Mylanta) 15 ml Q6H PRN ORAL DYSPEPSIA 06/04/17 21:15 07/04/17 21:14 06/05/17 13:06 Dextrose (Dextrose 50%) STAT PRN IV Hypoglycemia 06/04/17 01:45 07/04/17 01:44 Docusate Sodium 100 mg 100 mg TWICE A DAY ORAL 06/03/17 15:00 07/03/17 14:59 06/05/17 09:12 Iron Sucrose/ Sodium Chloride (Venofer/Sodium Chloride) 60 ml @ 240 mls/hr BEDTIME IVPB 06/04/17 21:00 06/08/17 21:14 06/04/17 21:24 Olanzapine (ZyPREXA) 15 mg BEDTIME ORAL 06/02/17 21:00 07/02/17 20:59 06/04/17 21:24 Princess Mustafa M.D. Jun 05, 2017 15:00
[2017-06-05 16:00] VITALS: BP 119/76
[2017-06-05 20:01] VITALS: BP 118/69
[2017-06-05] MEDS: Iron Sucrose 100 MG in NS 55 ML IVPB SCH (21:23)
--- NOTE | 2017-06-05 22:00 | Consultation ---
DATE OF CONSULTATION: 06/05/2017 INFECTIOUS DISEASE CONSULTATION REQUESTING PHYSICIAN: Deniz Graves M.D. REASON FOR CONSULTATION: Acute bronchitis, recommendation for antibiotics therapy. HISTORY OF PRESENT ILLNESS: The patient is a 56-year-old male with a history of asthma and psych disorder presented to [facility] with sudden onset of chest discomfort associated with hearing voices. His chest discomfort has been going on for a couple of hours before presentation. Denied any fever or chills. No nausea or vomiting, but he has cough, it was dry at the beginning became productive of greenish phlegm. So, I was consulted by the primary provider for antibiotic treatment and further management for his acute bronchitis, possible asthma exacerbation related. REVIEW OF SYSTEMS: A 12-point system reviewed were all negative. PAST MEDICAL HISTORY: Significant for asthma and psych disorder. PAST SURGICAL HISTORY: Negative. MEDICATIONS: He is on Mylanta, dextrose, olanzapine, hydrocodone, and acetaminophen. ALLERGIES: He is allergic to haloperidol. FAMILY HISTORY: Negative. SOCIAL HISTORY: The patient denied using drugs, tobacco, or alcohol. PHYSICAL EXAMINATION: GENERAL: This is a middle-aged male, lying in bed, awake, alert, not in distress. VITAL SIGNS: Temperature 96.6 degrees, pulse 70, respiration 18, blood pressure 114/67, and saturation 100% on room air. HEENT: Normocephalic and atraumatic. Pupils are reactive to light. Moist oral mucosa. NECK: Supple. No lymphadenopathy. CARDIOVASCULAR: Regular rate and rhythm. No murmur. LUNGS: He had wheezing at the bases with diminished breathing sounds. ABDOMEN: Soft, nontender, and nondistended. Normal bowel sounds. EXTREMITIES: No edema or cyanosis. LABORATORY DATA: Labs showed white count of 4000, hemoglobin of 11, and platelet count of 159,000. BUN of 9 and creatinine of 1.1. Urinalysis showed negative leukocyte esterase, negative nitrite, WBCs 0 to 2, and a few bacteria. IMAGING: Chest x-ray showed no acute process. ASSESSMENT AND RECOMMENDATION: 1. Acute bronchitis. We will start Levaquin for five days. 2. Chest pain. Monitor troponin. Cardiology is following. May need stress test. 3. Acute coronary syndrome. Continue cardiac medications and telemonitor. Cardiology is following. 4. Asthma, possible exacerbation. Continue inhalers and antibiotics. Princess Mustafa M.D. DR: YENNI JOB#: [id number] CC:
[2017-06-06] VITALS (7 sets, daily range): BP systolic 111–141; BP diastolic 62–83
--- NOTE | 2017-06-06 08:24 | General Progress Note ---
Assessment/Plan Assessment/Plan ASSESSMENT AND PLAN: 1. Anemia secondary to iron deficiency. Anemia workup has been ordered --> anemia panel reviewed, low iron anemia --> continue ferrous sulfate 2. Microcytosis rule out gastrointestinal bleed. --> egd was scheduled per Dr. Garcias, but patient refused npo order, procedure cancelled 3. Atypical chest pain. 4. History of asthma. 5. Acute coronary syndrome 6. Acute bronchitis Subjective Date patient seen: Jun 05, 2017 Constitutional: Reports: no symptoms HEENT: Reports: no symptoms Cardiovascular: Reports: chest pain, edema, irregular heart rate, lightheadedness, no symptoms, other, palpitations, syncope Respiratory: Reports: no symptoms Gastrointestinal/Abdominal: Reports: no symptoms Genitourinary: Reports: no symptoms Neurologic/Psychiatric: Reports: no symptoms Endocrine: Reports: no symptoms Hematologic/Lymphatic: Reports: anemia Allergies: Coded Allergies: HALOPERIDOL (Verified Allergy, Unknown, 06/01/17) Subjective no SOB, no events overnight. Objective Last 24 Hour Vital Signs Date Time Temp Pulse Resp B/P Pulse Ox O2 Delivery O2 Flow Rate FiO2 06/06/17 07:30 98.6 88 20 134/77 100 Room Air 06/06/17 04:00 76 06/06/17 04:00 98.1 81 20 118/77 100 Room Air 06/06/17 00:00 97.9 85 20 115/69 99 Room Air 06/06/17 00:00 86 06/05/17 20:01 97.9 83 18 118/69 99 Room Air 06/05/17 20:00 81 06/05/17 16:00 78 06/05/17 16:00 97.2 77 18 119/76 100 Room Air 06/05/17 12:01 96.6 70 18 114/67 100 Room Air 06/05/17 12:00 96 Intake and Output 06/05/17 06/06/17 19:00 07:00 Intake Total 830 ml 301 ml Balance 830 ml 301 ml Intake Oral 830 ml 241 ml IV Total 60 ml # Voids 4 4 Height (Feet): 6 Height (Inches): 6.00 Weight (Pounds): 135 EENT: normal ENT inspection Neck: normal alignment Cardiovascular: normal rate Edema: no edema noted Pedal (L), no edema noted Pedal (R) 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
--- NOTE | 2017-06-06 09:30 | General Progress Note ---
Assessment/Plan Status: stable Assessment/Plan - Cr 1.4 ? CKD ? Dehydration and 1+ Proteinuria now WNL - Abdominal pain - resolved - microcytic anemia with iron deficiency - atypical CP, negative Troponins - Schizophrenia Low Iron Anemia h/o Asthma Plan: Hydrate, bollous- BP low, check cortisol level FU renal parammeters one dose IV Iron per orders Subjective ROS Limited/Unobtainable: No Allergies: Coded Allergies: HALOPERIDOL (Verified Allergy, Unknown, 06/01/17) Objective Last 24 Hour Vital Signs Date Time Temp Pulse Resp B/P Pulse Ox O2 Delivery O2 Flow Rate FiO2 06/06/17 07:30 98.6 88 20 134/77 100 Room Air 06/06/17 04:00 76 06/06/17 04:00 98.1 81 20 118/77 100 Room Air 06/06/17 00:00 97.9 85 20 115/69 99 Room Air 06/06/17 00:00 86 06/05/17 20:01 97.9 83 18 118/69 99 Room Air 06/05/17 20:00 81 06/05/17 16:00 78 06/05/17 16:00 97.2 77 18 119/76 100 Room Air 06/05/17 12:01 96.6 70 18 114/67 100 Room Air 06/05/17 12:00 96 Intake and Output 06/05/17 06/06/17 19:00 07:00 Intake Total 830 ml 301 ml Balance 830 ml 301 ml Intake Oral 830 ml 241 ml IV Total 60 ml # Voids 4 4 Height (Feet): 6 Height (Inches): 6.00 Weight (Pounds): 135 General Appearance: no apparent distress Objective no change in PE GIULIANA ALTMAN Jun 06, 2017 09:30
[2017-06-06] MEDS: Docusate 100mg cap ORAL SCH ×2 (10:32→18:00)
--- NOTE | 2017-06-06 16:38 | Infectious Diseases Prog Note ---
Assessment/Plan Problems: (1) Acute bronchitis Assessment & Plan: on levaquin for 5 days (2) Chest pain Assessment & Plan: monitor, trop , cardiology is following (3) ACS (acute coronary syndrome) Assessment & Plan: continue cardiac meds, and tele monitor, cardiology is following Subjective Constitutional: Reports: no symptoms HEENT: Reports: no symptoms Respiratory: Reports: dry cough Breasts: Reports: no symptoms Cardiovascular: Reports: no symptoms Gastrointestinal/Abdominal: Reports: no symptoms Genitourinary: Reports: no symptoms Neurologic: Reports: no symptoms Psychiatric: Reports: no symptoms Skin: Reports: no symptoms Endocrine: Reports: no symptoms Hematologic: Reports: no symptoms Allergies: Coded Allergies: HALOPERIDOL (Verified Allergy, Unknown, 06/01/17) Objective Vital Signs Last 24 Hour Vital Signs Date Time Temp Pulse Resp B/P Pulse Ox O2 Delivery O2 Flow Rate FiO2 06/06/17 16:30 97.7 93 22 141/79 100 Room Air 06/06/17 12:48 97.9 91 21 132/83 96 Room Air 06/06/17 07:30 98.6 88 20 134/77 100 Room Air 06/06/17 04:00 76 06/06/17 04:00 98.1 81 20 118/77 100 Room Air 06/06/17 00:00 97.9 85 20 115/69 99 Room Air 06/06/17 00:00 86 06/05/17 20:01 97.9 83 18 118/69 99 Room Air 06/05/17 20:00 81 Height (Feet): 6 Height (Inches): 6.00 Weight (Pounds): 135 General Appearance: WD/WN, no acute distress HEENT: normocephalic, atraumatic, anicteric, mucous membranes moist Respiratory/Chest: chest wall non-tender, lungs clear, normal breath sounds, no respiratory distress, no accessory muscle use Cardiovascular: normal rate, regular rhythm, no gallop/murmur Abdomen: normal bowel sounds, soft, non tender, no organomegaly, non distended , no mass Extremities: no cyanosis, no clubbing Skin: no rash, no lesions Neurologic/Psychiatric: alert, oriented x 3 Current Medications Medications (Trade) Dose Ordered Sig/Jayy Route PRN Reason Start Time Stop Time Status Last Admin Dose Admin Acetaminophen (Tylenol) 650 mg Q4H PRN ORAL Mild Pain/Temp > 100.5 06/01/17 20:15 07/01/17 20:14 06/02/17 03:28 Acetaminophen/ Hydrocodone Bitart ([place] 5/325) 1 tab Q4H PRN ORAL Moderate Pain (Pain Scale 4-6) 06/02/17 06:45 06/09/17 06:44 06/03/17 10:22 Al Hydroxide/Mg Hydroxide (Mylanta) 15 ml Q6H PRN ORAL DYSPEPSIA 06/04/17 21:15 07/04/17 21:14 06/05/17 13:06 Dextrose (Dextrose 50%) STAT PRN IV Hypoglycemia 06/04/17 01:45 07/04/17 01:44 Docusate Sodium (Colace) 100 mg TWICE A DAY ORAL 06/03/17 15:00 07/03/17 14:59 06/06/17 10:32 Iron Sucrose/ Sodium Chloride (Venofer/Sodium Chloride) 60 ml @ 240 mls/hr BEDTIME IVPB 06/07/17 21:00 06/09/17 21:14 Levofloxacin 250 mg 250 mg DAILY ORAL 06/05/17 15:30 06/12/17 15:29 06/06/17 10:32 Olanzapine (ZyPREXA) 15 mg BEDTIME ORAL 06/02/17 21:00 07/02/17 20:59 06/05/17 21:01 Princess Mustafa M.D. Jun 06, 2017 16:38
--- NOTE | 2017-06-06 20:15 | Progress Note ---
SUBJECTIVE: The patient is stable at baseline. He made some remarks that he is going to kill himself or others if he is going to be discharged. There is no indication that he will do that because he does not have any risk factors. He does not want to be discharged and I do not believe the patient is an imminent danger to self or others. MENTAL STATUS EXAMINATION: The patient is alert and oriented times self, place and situation. Mood is dysphoric and irritable. Affect is constricted, congruent with mood. Thought process is concrete. Thought content, no suicidal or homicidal ideations. ASSESSMENT: The patient is stable. PLAN: 1. The patient could be discharged. He does not meet the criteria of [facility] or inpatient level of care. 2. We will continue to follow and readjust the medications. Yris Chirinos M.D. DR: RYLEY JOB#: [id number] CC:
--- NOTE | 2017-06-06 22:23 | General Progress Note ---
Assessment/Plan Assessment/Plan ASSESSMENT AND PLAN: 1. Anemia secondary to iron deficiency. Anemia workup has been ordered --> anemia panel reviewed, low iron anemia --> continue ferrous sulfate 2. Microcytosis rule out gastrointestinal bleed. --> egd was scheduled per Dr. Garcias, but patient refused npo order, procedure cancelled 3. Atypical chest pain. 4. History of asthma. 5. Acute coronary syndrome 6. Acute bronchitis Subjective Constitutional: Reports: no symptoms HEENT: Reports: no symptoms Cardiovascular: Reports: no symptoms Respiratory: Reports: no symptoms Gastrointestinal/Abdominal: Reports: no symptoms Genitourinary: Reports: no symptoms Neurologic/Psychiatric: Reports: no symptoms Endocrine: Reports: no symptoms Hematologic/Lymphatic: Reports: anemia Allergies: Coded Allergies: HALOPERIDOL (Verified Allergy, Unknown, 06/01/17) Subjective no new complaints Objective Last 24 Hour Vital Signs Date Time Temp Pulse Resp B/P Pulse Ox O2 Delivery O2 Flow Rate FiO2 06/06/17 20:00 97.5 79 19 111/62 100 Room Air 06/06/17 16:30 97.7 93 22 141/79 100 Room Air 06/06/17 16:00 77 06/06/17 12:48 97.9 91 21 132/83 96 Room Air 06/06/17 12:00 80 06/06/17 08:00 97.5 79 19 111/62 100 Room Air 06/06/17 08:00 72 06/06/17 07:30 98.6 88 20 134/77 100 Room Air 06/06/17 04:00 76 06/06/17 04:00 98.1 81 20 118/77 100 Room Air 06/06/17 00:00 97.9 85 20 115/69 99 Room Air 06/06/17 00:00 86 Intake and Output 06/05/17 06/06/17 19:00 07:00 Intake Total 830 ml 301 ml Balance 830 ml 301 ml Intake Oral 830 ml 241 ml IV Total 60 ml # Voids 4 4 Height (Feet): 6 Height (Inches): 6.00 Weight (Pounds): 135 General Appearance: no apparent distress EENT: PERRL/EOMI Neck: normal alignment Cardiovascular: normal peripheral pulses Extremities: normal range of motion Edema: no edema noted Pedal (L), no edema noted Pedal (R) Brian Moe Jun 06, 2017 22:23
[2017-06-07] VITALS: BP 110/73
[2017-06-07 04:00] VITALS: BP 109/70
[2017-06-07 07:29] VITALS: BP 108/70
[2017-06-07] MEDS: Docusate 100mg cap ORAL SCH (08:23)
--- NOTE | 2017-06-07 10:00 | General Progress Note ---
Assessment/Plan Status: stable - from renal stand Assessment/Plan - Cr 1.4 ? CKD ? Dehydration and 1+ Proteinuria now WNL - Abdominal pain - resolved - microcytic anemia with iron deficiency - atypical CP, negative Troponins - Schizophrenia Low Iron Anemia h/o Asthma Plan: Hydrate, bollous- FU renal parammeters one dose IV Iron per orders ? DC Subjective ROS Limited/Unobtainable: No Allergies: Coded Allergies: HALOPERIDOL (Verified Allergy, Unknown, 06/01/17) Objective Last 24 Hour Vital Signs Date Time Temp Pulse Resp B/P Pulse Ox O2 Delivery O2 Flow Rate FiO2 06/07/17 08:00 80 06/07/17 07:29 96.3 83 20 108/70 99 Room Air 06/07/17 04:00 81 06/07/17 04:00 97.4 77 19 109/70 99 Room Air 06/07/17 00:00 83 06/07/17 00:00 97.3 78 19 110/73 97 Room Air 06/06/17 20:00 97.5 79 19 111/62 100 Room Air 06/06/17 20:00 99 06/06/17 16:30 97.7 93 22 141/79 100 Room Air 06/06/17 16:00 77 06/06/17 12:48 97.9 91 21 132/83 96 Room Air 06/06/17 12:00 80 Intake and Output 06/06/17 06/07/17 19:00 07:00 Intake Total 1274 ml 720 ml Balance 1274 ml 720 ml Intake Oral 1274 ml 360 ml Other 360 ml # Voids 8 12 # Bowel Movements 7 3 Height (Feet): 6 Height (Inches): 6.00 Weight (Pounds): 135 General Appearance: no apparent distress Objective no change in PE GIULIANA ALTMAN Jun 07, 2017 10:00
--- NOTE | 2017-06-07 10:07 | General Progress Note ---
Assessment/Plan Assessment/Plan Assessment - Abdominal pain - resolved - microcytic anemia with iron deficiency - atypical CP, negative Troponins Recommendations - Cancelled EGD/Colon per patient refusal - d/c planning - outpt GI eval - pt to arrange - patient understands risk of serious GI malignancy Subjective Allergies: Coded Allergies: HALOPERIDOL (Verified Allergy, Unknown, 06/01/17) Subjective uneventful weekend eating well no complaints Objective Last 24 Hour Vital Signs Date Time Temp Pulse Resp B/P Pulse Ox O2 Delivery O2 Flow Rate FiO2 06/07/17 08:00 80 06/07/17 07:29 96.3 83 20 108/70 99 Room Air 06/07/17 04:00 81 06/07/17 04:00 97.4 77 19 109/70 99 Room Air 06/07/17 00:00 83 06/07/17 00:00 97.3 78 19 110/73 97 Room Air 06/06/17 20:00 97.5 79 19 111/62 100 Room Air 06/06/17 20:00 99 06/06/17 16:30 97.7 93 22 141/79 100 Room Air 06/06/17 16:00 77 06/06/17 12:48 97.9 91 21 132/83 96 Room Air 06/06/17 12:00 80 Intake and Output 06/06/17 06/07/17 19:00 07:00 Intake Total 1274 ml 720 ml Balance 1274 ml 720 ml Intake Oral 1274 ml 360 ml Other 360 ml # Voids 8 12 # Bowel Movements 7 3 Height (Feet): 6 Height (Inches): 6.00 Weight (Pounds): 135 Objective WDWN NCAT RRR abd soft, NT no edema non focal MARKIE NELSON Jun 07, 2017 10:07
[2017-06-07 11:33] VITALS: BP 112/68
[2017-06-07] MEDS ORDERED: Iron Sucrose 100 MG in NS 55 ML IVPB SCH (21:00)
--- NOTE | 2017-06-07 22:30 | Progress Note ---
DATE: 06/07/2017 SUBJECTIVE: The patient apparently stated that he has suicidal and homicidal ideation. This was reported to the staff upon discharge of the patient. Today, I have a conference call with Dr. Graves and we both did not feel comfortable to discharge the patient; therefore, we called the PET team. I placed an order for PET team evaluation. While the staff were in the process of calling the PET team, the patient decided to leave against medical advice. The nurse called me. We asked the patient to await for 5150 and going to the [facility]. The patient refused and stated that he is not suicidal or homicidal and requested to be discharge. Yris Chirinos M.D. DR: KATHY JOB#: [id number] CC:
--- NOTE | 2017-06-08 09:04 | General Progress Note ---
Assessment/Plan Assessment/Plan ASSESSMENT AND PLAN: 1. Anemia secondary to iron deficiency. Anemia workup has been ordered --> anemia panel reviewed, low iron anemia --> was given ferrous sulfate --> follow up with pcp as outpatient 2. Microcytosis rule out gastrointestinal bleed. --> egd was scheduled per Dr. Garcias, but patient refused npo order, procedure cancelled 3. Atypical chest pain. 4. History of asthma. 5. Acute coronary syndrome 6. Acute bronchitis Subjective Date patient seen: Jun 07, 2017 Constitutional: Reports: no symptoms HEENT: Reports: no symptoms Cardiovascular: Reports: no symptoms Respiratory: Reports: no symptoms Gastrointestinal/Abdominal: Reports: no symptoms Genitourinary: Reports: no symptoms Neurologic/Psychiatric: Reports: no symptoms Endocrine: Reports: no symptoms Hematologic/Lymphatic: Reports: anemia Allergies: Coded Allergies: HALOPERIDOL (Verified Allergy, Unknown, 06/01/17) Subjective PET team was called, Pt left AMA Objective Last 24 Hour Vital Signs Date Time Temp Pulse Resp B/P Pulse Ox O2 Delivery O2 Flow Rate FiO2 06/07/17 11:33 97.7 89 20 112/68 100 Room Air Intake and Output 06/07/17 06/08/17 19:00 07:00 Intake Total 1350 ml Balance 1350 ml Intake Oral 1350 ml # Voids 5 # Bowel Movements 3 Height (Feet): 6 Height (Inches): 6.00 Weight (Pounds): 135 General Appearance: no apparent distress EENT: PERRL/EOMI Neck: normal alignment Cardiovascular: regular rhythm Respiratory/Chest: normal breath sounds Edema: no edema noted Pedal (L), no edema noted Pedal (R) Skin: warm/dry Brian Moe Jun 08, 2017 09:04
--- NOTE | 2017-06-08 09:41 | Discharge Summary ---
Discharge Summary Hospital Course Date of Admission Jun 01, 2017 at 16:15 Date of Discharge Jun 07, 2017 at 13:02 Admitting Diagnosis ACS HPI Marvel Cartagena is a 56 year old male who was admitted on Jun 01, 2017 at 16:15 for Acute Coronary Syndrome Hospital Course dc summary #[id number] Discharge Discharge Disposition Patient signed AMA Discharge Diagnoses: Discharge Instructions Discharge Instructions Special Instructions I have been assigned to complete a D/C Summary on this account. I was not involved in the patient management Beti Villarreal NP ([place]) Jun 08, 2017 09:41
--- NOTE | 2017-06-09 07:00 | Discharge Summary 2 SIG ---
DATE OF ADMISSION: 06/01/2017 DATE OF DISCHARGE: 06/07/2017 The patient is admitted under Dr. Graves. DATE OF SIGNING AGAINST MEDICAL ADVICE: 06/07/2017 REASON FOR ADMISSION: The patient is a 56-year-old male with schizophrenia, presented with chest pain associated with him hearing voices. In the emergency department, first troponin was negative. EKG showed normal sinus rhythm. Chest x-ray revealed no acute cardiopulmonary disease. CK was 621. CK-MB was 10.6. The patient was slightly anemic with a hemoglobin of 10.4 and hematocrit 34.8. No leukocytosis. Renal parameters showed insufficiency with BUN of 12 and creatinine of 1.4. The patient was admitted to the hospital. ADMITTING DIAGNOSES: 1. Chest pain, rule out acute coronary syndrome. 2. Acute kidney injury. 3. Anemia. HOSPITAL COURSE: The patient was admitted to telemetry floor. Cardiology consult was requested along with GI consult for workup for anemia. The patient showed evidence of microcytic anemia. Anemia workup revealed iron-deficiency anemia. GI recommended upper endoscopy. After medical/cardiac clearance, supervisor cellars had seen and evaluated the patient. Serial troponin x2 were negative. EKG revealed sinus rhythm. No acute ischemic changes. Branch Mechanic ordered lipid panel for risk stratification for coronary artery disease, which was within normal limits. Urine tox screen was positive for cocaine. Branch Mechanic cleared the patient for the GI procedure, the risk being less than 1%. The patient has, however, refused to have an upper endoscopy. Procedure was canceled and recommended by GI to schedule as outpatient procedure and follow up with outpatient GI doctor for further evaluation of anemia. The patient has history of asthma. Supplemental oxygen was provided as needed to keep saturation above 92%. Pulmonary toilet was provided as needed. Pulse oximetry was stable on room air. Chest x-ray revealed no evidence of acute cardiopulmonary disease. The patient was coughing. ID followed. Possible acute bronchitis. The patient was started on empiric antibiotic. Antitussive was provided as needed. For microcytic anemia, the patient received Venofer while in the hospital. Hematology closely followed. Recommended to follow up with meteorologist liaison or primary medical doctor as outpatient. The patient's creatinine was down to normal with IV fluids. Acute kidney injury was possibly due to dehydration as per agile scrum coach recommendation. The patient has underlying history of schizophrenia. Psychiatric consult was requested. The patient was medically stable and while the psychiatrist evaluated the patient and contemplating to call PET team, the patient decided to sign against medical advice. Risks and consequences of signing against medical advice were discussed with the patient. The patient insisted on leaving. FINAL DIAGNOSES: 1. Noncardiac chest pain. Of note, the supervisor cellars concluded that chest pain was noncardiac. presence in urine verified that possibly due to the cocaine abuse. There was no associated ST or T-wave abnormality. History not convincing for ischemic heart disease. Risk factor for coronary artery disease only includes age. Again, lipid panel was within normal limits. The patient is not a candidate for aspirin in lieu of anemia. 2. Cocaine abuse. 3. Microcytic iron-deficiency anemia. 4. Acute bronchitis. 5. History of asthma. 6. Dehydration. 7. Acute kidney injury, resolved. 8. Schizophrenia. Deniz Graves M.D. I have been assigned to dictate discharge summary on this account and I was not involved in the patient's management. [facility]: COLLINS JOB#: [id number] CC:
== END 2017-06-07 13:02 | disposition left against medical advice (07) | DRG 203 ==
LOC: EDBD 15:43 → EMR 16:10 → 2E 16:15 → EDBEDREQ 17:38
DX: R07.89 Other chest pain (principal); N17.9 Acute kidney failure, unspecified; E86.0 Dehydration; F14.10 Cocaine abuse, uncomplicated; F32.9 Major depressive disorder, single episode, unspecified; D50.8 Other iron deficiency anemias; J20.9 Acute bronchitis, unspecified; F20.0 Paranoid schizophrenia; F17.200 Nicotine dependence, unspecified, uncomplicated; Z88.8 Allergy status to other drugs, medicaments and biological substances; J45.909 Unspecified asthma, uncomplicated; F41.9 Anxiety disorder, unspecified; R10.9 Unspecified abdominal pain; F19.10 Other psychoactive substance abuse, uncomplicated
CPT/HCPCS: 36415; 71010; 80053; 80061; 80300; 81003; 82533; 82550; 82553; 82607; 82728; 82746; 83036; 83540; 83550; 83690; 83735; 83880; 84100; 84443; 84484; 85007; 85025; 85610; 85730; 86140; 93005